=== PATIENT | male | born 1950 | race Caucasian/White ===

== ENCOUNTER 2016-12-08 18:00 | Emergency (ER) | payer OTHER, SELFPAY ==
[2016-12-08 18:31] VITALS: BP 170/90; PULSE 82; RESP 16; TEMP 99.3; O2SAT 96
== END 2016-12-08 22:00 | disposition left against medical advice (07) ==
LOC: ED 18:00
DX: Z02.89 Encounter for other administrative examinations (principal); R04.0 Epistaxis